=== PATIENT | female | born 1985 | race Caucasian/White ===

== ENCOUNTER 2017-10-23 12:14 | Emergency (ER) | payer BC ==
--- OUTSIDE RECORDS SUMMARY | 2017-10-23 12:25 | XMS REPORT ---
:1985 External Reference #:[id number] Author Organization [facility] Address [address] [place] [address] Phone [phone] Care Team Providers Name Role Phone ASHANTI Smith Care Team Information Crab Butcher Unavailable Payers Type Date Identification Numbers Payment Provider Subscriber Commercial Effective: Policy Number: [employer] Javier Melton 2014 [id number] Group Name: BC/BS of [facility] [address] [address] PayID: [id number] [place] [id number] Problems Description No Information Family History Date Family Member(s) Problem(s) Comments Father Hypertension Mother Hypercholesterolemia First Son Asthma : (1978) Paternal Grandfather due to [place] Paternal Grandfather Diabetes Paternal Grandmother Diabetes Paternal Grandmother Gout Paternal Grandmother due to "Old Age" () Maternal Grandfather Alcoholism Stopped drinking in 1986 Maternal Grandfather Cancer, Prostate Maternal Grandfather due to Cancer () Maternal Grandfather [place] Maternal Grandmother Hypercholesterolemia Maternal Grandmother [place] Social History Type Date Description Comments Marital Status Lives With Son Lives With Spouse Occupation security flex utility officer [employer] Cigarette Use Never Smoked Cigarettes ETOH Use Rarely consumes alcohol Smoking Patient has never smoked Enjoy Exercising Enjoys exercising Allergies, Adverse Reactions, Alerts Date Description Reaction Status Severity Comments 09/29/2015 Sulfa rash active Medications Medication Date Status Form Strength Qnty SIG Indications Ordering Provider Testoquench Active Stephanie 2016 ASHANTI Price Saige 08/02/ Active Stephanie 2016 JUDY Price-C Progesterone 03/29/ Active Stephanie Cream 2016 JUDY Price-C Probiotic 09/29/ Active Capsules Stephanie 2015 JUDY Price-C 09/29/ Active Tablets 14-0.4mg Stephanie Complete 2015 JUDY Price-C Iodine / Active Tincture 2% daily Unknown Tincture 0000 Inositol / Active Powder Unknown 0000 Vitamin D / Active Tablets 1 by mouth Unknown 0000 every day Prep 03/29/ Hx Stephanie 2016 - Caron, 07/27/ FIELD PROJECT MANAGER-C 2016 Usha 03/29/ Hx Stephanie Progest 2016 - Caron, 07/27/ FIELD PROJECT MANAGER-C 2016 Clotrimazole 07/11/ Hx Cream 2% 21gm apply to Stephanie 2015 - affected Caron, 09/09/ area twice FIELD PROJECT MANAGER-C 2016 a day Clotrimazole/B 06/28/ Hx Cream 1-0.05% 45unit apply a B35.4 Stephanie etamethasone 2015 - s thin film Caron Dipropionate 09/09/ to rash FIELD PROJECT MANAGER-C 2016 twice daily Cephalexin 06/08/ Hx Tablets 500mg 21tabs take 1 Stephanie 2015 - tablet by Caron, 09/09/ mouth three FIELD PROJECT MANAGER-C 2017 times a day x 7 days Augmentin 05/31/ Hx Tablets 875-125mg 20tabs 1 by mouth L66.4 Shawnti R. 2015 - twice a day [facility], 06/08/ for FIELD PROJECT MANAGER-C 2015 infection Bactroban 05/31/ Hx Cream 2% 30gm apply to L66.4 Shawnti R. 2016 - affected Storm, 05/31/ area three FIELD PROJECT MANAGER-C 2016 times a day as needed Mupirocin 05/31/ Hx Ointment 2% 44gm apply small L66.4 Stephanie 2015 - amount to Caron, 09/09/ rash three FIELD PROJECT MANAGER-C 2017 times daily until resolved Mirena 09/29/ Hx IUD 20mcg/24HR inserted Stephanie 2015 - 11/2013 Caron, 09/15/ FIELD PROJECT MANAGER-C 2017 Dha 09/29/ Hx Capsules 200mg Stephanie 2015 - Caron, 07/27/ FIELD PROJECT MANAGER-C 2017 Acidophilus 09/29/ Hx Capsules Stephanie 2016 - Caron, 09/29/ FIELD PROJECT MANAGER-C 2016 Immunizations CPT Code Status Date Vaccine Lot # [id number] Given 09/29/2013 Tdap (Adacel) 15612 Given 12/03/2012 HPV Vaccine, Gardasil 06422 Given 07/30/2012 HPV Vaccine, Gardasil 82630 Given 05/28/2012 HPV Vaccine, Gardasil 43848 Given 07/07/2010 Tdap (Adacel) 33306 Given 07/07/2010 Influenza Virus Vaccine, Quadrivalent, 3 Yr > Quad, Preserv Free [id number] Refused 07/27/2017 Influenza Virus Vaccine, Quadrivalent, 3 Yr > Quad, Preserv Free Vital Signs Date Vital Result Comment 09/01/2017 Weight 133.00 lb Weight in kg's 60.329 BP Systolic 92 mmHg BP Diastolic 62 mmHg Heart Rate 72 /min Body Temperature 97.5 F Respiratory Rate 16 /min O2 % BldC Oximetry 98 % 07/27/2017 Weight 132.00 lb Weight in kg's 59.875 BP Systolic 90 mmHg BP Diastolic 60 mmHg Heart Rate 84 /min Body Temperature 98.3 F 03/29/2017 Weight 128.00 lb Weight in kg's 58.061 BP Systolic 108 mmHg BP Diastolic 64 mmHg Heart Rate 72 /min Body Temperature 98.6 F Respiratory Rate 16 /min 09/09/2016 Weight 131.00 lb Weight in kg's 59.422 BP Systolic 104 mmHg BP Diastolic 68 mmHg Heart Rate 90 /min Body Temperature 97.8 F Respiratory Rate 14 /min O2 % BldC Oximetry 98 % 06/28/2016 Weight 131.00 lb Weight in kg's 59.422 BP Systolic 90 mmHg BP Diastolic 60 mmHg Heart Rate 80 /min Body Temperature 98.5 F Respiratory Rate 12 /min 06/15/2016 BP Systolic 101 mmHg BP Diastolic 57 mmHg Heart Rate 76 /min Body Temperature 98.9 F 05/31/2016 Weight 127.00 lb Weight in kg's 57.607 BP Systolic 100 mmHg BP Diastolic 60 mmHg Heart Rate 88 /min Body Temperature 99.0 F 04/22/2016 Weight 129.00 lb Weight in kg's 58.514 BP Systolic 106 mmHg BP Diastolic 62 mmHg Heart Rate 88 /min Body Temperature 98.3 F Respiratory Rate 16 /min 03/21/2016 Weight 130.00 lb Weight in kg's 58.968 BP Systolic 106 mmHg BP Diastolic 60 mmHg Heart Rate 92 /min Body Temperature 98.9 F Respiratory Rate 16 /min 09/29/2015 Weight 123.00 lb Weight in kg's 55.793 BP Systolic 90 mmHg BP Diastolic 62 mmHg Heart Rate 84 /min Height 62 inches 5'2" BMI (Body Mass Index) 22.5 kg/m2 Results Test Date Test Result H/L Range Note Laboratory test finding 09/01/2017 Amylase 35 U/L 29-103 1 Lipase 40 U/L 11.0-82.0 2 CBC Auto Diff 09/01/2017 White Blood Count 5.9 10^3/uL 3.5-10.8 Red Blood Count 4.75 10^6/uL 4.0-5.4 Hemoglobin 14.0 g/dL 12.0-16.0 Hematocrit 41 % 35-47 Mean Corpuscular Volume 87 fL 80-97 Mean Corpuscular Hemoglobin 30 pg 27-31 Mean Corpuscular HGB Conc 34 g/dL 31-36 Red Cell Distribution Width 13 % 10.5-15 Platelet Count 228 10^3/uL 150-450 Mean Platelet Volume 9 um3 7.4-10.4 Abs Neutrophils 3.6 10^3/uL 1.5-7.7 Abs Lymphocytes 1.9 10^3/uL 1.0-4.8 Abs Monocytes 0.3 10^3/uL 0-0.8 Abs Eosinophils 0.1 10^3/uL 0-0.6 Abs Basophils 0 10^3/uL 0-0.2 Abs Nucleated RBC 0 10^3/uL Granulocyte % 60.2 % 38-83 Lymphocyte % 31.7 % 25-47 Monocyte % 5.2 % 1-9 Eosinophil % 2.4 % 0-6 Basophil % 0.5 % 0-2 Nucleated Red Blood Cells % 0 Comp Metabolic Panel 09/01/2017 Sodium 137 mmol/L 133-145 Potassium 4.1 mmol/L 3.5-5.0 Chloride 104 mmol/L 101-111 Co2 Carbon Dioxide 27 mmol/L 22-32 Anion Gap 6 mmol/L 2-11 Glucose 68 mg/dL Low 70-100 Blood Urea Nitrogen 10 mg/dL 6-24 Creatinine 0.73 mg/dL 0.51-0.95 BUN/Creatinine Ratio 13.7 8-20 Calcium 9.3 mg/dL 8.6-10.3 Total Protein 6.7 g/dL 6.4-8.9 Albumin 4.7 g/dL 3.2-5.2 Globulin 2.0 g/dL 2-4 Albumin/Globulin Ratio 2.4 1-3 Total Bilirubin 0.60 mg/dL 0.2-1.0 Alkaline Phosphatase 43 U/L 34-104 Alt 24 U/L 7-52 Ast 19 U/L 13-39 Egfr Non- 93.6 >60 Egfr 120.4 >60 3 Laboratory test finding 09/01/2017 TSH (Thyroid Stim Horm) 1.57 mcIU/mL 0.34-5.60 4 CBC Auto Diff 03/29/2017 White Blood Count 8.1 10^3/uL 3.5-10.8 Red Blood Count 4.71 10^6/uL 4.0-5.4 Hemoglobin 14.0 g/dL 12.0-16.0 Hematocrit 42 % 35-47 Mean Corpuscular Volume 90 fL 80-97 Mean Corpuscular Hemoglobin 30 pg 27-31 Mean Corpuscular HGB Conc 33 g/dL 31-36 Red Cell Distribution Width 13 % 10.5-15 Platelet Count 223 10^3/uL 150-450 Mean Platelet Volume 9 um3 7.4-10.4 Abs Neutrophils 5.1 10^3/uL 1.5-7.7 Abs Lymphocytes 2.5 10^3/uL 1.0-4.8 Abs Monocytes 0.3 10^3/uL 0-0.8 Abs Eosinophils 0.2 10^3/uL 0-0.6 Abs Basophils 0 10^3/uL 0-0.2 Abs Nucleated RBC 0 10^3/uL Granulocyte % 62.6 % 38-83 Lymphocyte % 31.0 % 25-47 Monocyte % 4.2 % 1-9 Eosinophil % 1.9 % 0-6 Basophil % 0.3 % 0-2 Nucleated Red Blood Cells % 0 Comp Metabolic Panel 03/29/2017 Sodium 137 mmol/L 133-145 Potassium 3.8 mmol/L 3.5-5.0 Chloride 103 mmol/L 101-111 Co2 Carbon Dioxide 29 mmol/L 22-32 Anion Gap 5 mmol/L 2-11 Glucose 85 mg/dL 70-100 Blood Urea Nitrogen 12 mg/dL 6-24 Creatinine 0.68 mg/dL 0.51-0.95 BUN/Creatinine Ratio 17.6 8-20 Calcium 9.5 mg/dL 8.6-10.3 Total Protein 6.9 g/dL 6.4-8.9 Albumin 4.7 g/dL 3.2-5.2 Globulin 2.2 g/dL 2-4 Albumin/Globulin Ratio 2.1 1-3 Total Bilirubin 0.40 mg/dL 0.2-1.0 Alkaline Phosphatase 46 U/L 34-104 Alt 31 U/L 7-52 Ast 25 U/L 13-39 Egfr Non- 102.3 >60 Egfr 131.6 >60 5 Laboratory test finding 03/29/2017 Erythrocyte Sed Rate 7 mm/Hr 0-14 6 C Reactive Protein 3.65 mg/L < 5.00 7 Lyme Western Blot 03/29/2017 Lyme Disease IgG Ab WB Negative Negative Lyme Disease IgG Bands Present No bands detecte <SEE NOTE> kDa 8 Lyme Disease IgM Ab WB Negative Negative Lyme Disease IgM Bands Present No bands detecte <SEE NOTE> kDa 9 Lyme Disease Interpretation See Comment 10 Iron & Iron Binding Capacity 03/29/2017 Iron 70 g/dL 50-212 Unsaturated Iron Binding 237 g/dL Total Iron Binding Capacity 307 g/dL 250-450 % Iron Saturation 23 % 15-55 Laboratory test 09/09/2016 HCG DIP Test neg Neg finding Laboratory test 05/31/2016 Hemoglobin A1c 5.2 % Less than 6.0 11 finding (Glyco HGB) Laboratory test 05/31/2016 Wound Culture/Sensi SEE RESULT BELOW 12 finding Lyme Western Blot 04/22/2016 Lyme Disease IgG Ab Negative Negative WB Lyme Disease IgG Bands Present p41, kDa Lyme Disease IgM Ab WB Negative Negative Lyme Disease IgM Bands Present No bands detecte <SEE NOTE> kDa 13 Lyme Disease Interpretation See Comment 14 Laboratory test finding 03/21/2016 TSH (Thyroid Stim 1.01 mcIU/mL 0.34- 5.60 15 Horm) CBC Auto Diff 03/21/2016 White Blood Count 6.6 10^3/uL 3.5-10.8 Red Blood Count 4.73 10^6/uL 4.0-5.4 Hemoglobin 13.9 g/dL 12.0-16.0 Hematocrit 42 % 35-47 Mean Corpuscular Volume 89 fL 80-97 Mean Corpuscular Hemoglobin 29 pg 27-31 Mean Corpuscular HGB Conc 33 g/dL 31-36 Red Cell Distribution Width 13 % 10.5-15 Platelet Count 235 10^3/uL 150-450 Mean Platelet Volume 10 um3 7.4-10.4 Abs Neutrophils 4.2 10^3/uL 1.5-7.7 Abs Lymphocytes 2.0 10^3/uL 1.0-4.8 Abs Monocytes 0.3 10^3/uL 0-0.8 Abs Eosinophils 0.1 10^3/uL 0-0.6 Abs Basophils 0 10^3/uL 0-0.2 Abs Nucleated RBC 0 10^3/uL Granulocyte % 63.1 % 38-83 Lymphocyte % 29.7 % 25-47 Monocyte % 4.7 % 1-9 Eosinophil % 1.8 % 0-6 Basophil % 0.7 % 0-2 Nucleated Red Blood Cells % 0 Comp Metabolic Panel 03/21/2016 Sodium 140 mmol/L 133-145 Potassium 4.1 mmol/L 3.5-5.0 Chloride 103 mmol/L 101-111 Co2 Carbon Dioxide 29 mmol/L 22-32 Anion Gap 8 mmol/L 2-11 Glucose 92 mg/dL 70-100 Blood Urea Nitrogen 10 mg/dL 6-24 Creatinine 0.69 mg/dL 0.51-0.95 BUN/Creatinine Ratio 14.5 8-20 Calcium 9.7 mg/dL 8.6-10.3 Total Protein 7.1 g/dL 6.4-8.9 Albumin 4.7 g/dL 3.2-5.2 Globulin 2.4 g/dL 2-4 Albumin/Globulin Ratio 2.0 1-3 Total Bilirubin 0.50 mg/dL 0.2-1.0 Alkaline Phosphatase 55 U/L 34-104 Alt 19 U/L 7-52 Ast 20 U/L 13-39 Egfr Non- 101.3 >60 Egfr 130.3 >60 16 Laboratory test 03/21/2016 Vitamin D Total 84.1 ng/mL High 30-50 17 finding 25(Oh) Laboratory test 09/29/2015 Cytology SEE RESULT BELOW 18 finding HPV Rna Ww/Reflex Genotype Negative Negative 19 1 [id number] 3 Because ethnic data is not always readily available, this report includes an eGFR for both -Americans and non- Americans. The National Kidney Disease Education Program (NKDEP) does not endorse the use of the MDRD equation for patients that are not between the ages of 18 and 70, are , have extremes of body size, muscle mass, or nutritional status, or are non- or non-. According to the National Kidney Foundation, irrespective of diagnosis, the stage of the disease is based on the level of kidney function: Stage Description GFR(mL/min/1.73 m(2)) 1 Kidney damage with normal or decreased GFR 90 2 Kidney damage with mild decrease in GFR 60-89 3 Moderate decrease in GFR 30-59 4 Severe decrease in GFR 15-29 5 Kidney failure <15 (or dialysis) 4 [id number] 5 Because ethnic data is not always readily available, this report includes an eGFR for both -Americans and non- Americans. The National Kidney Disease Education Program (NKDEP) does not endorse the use of the MDRD equation for patients that are not between the ages of 18 and 70, are , have extremes of body size, muscle mass, or nutritional status, or are non- or non-. According to the National Kidney Foundation, irrespective of diagnosis, the stage of the disease is based on the level of kidney function: Stage Description GFR(mL/min/1.73 m(2)) 1 Kidney damage with normal or decreased GFR 90 2 Kidney damage with mild decrease in GFR 60-89 3 Moderate decrease in GFR 30-59 4 Severe decrease in GFR 15-29 5 Kidney failure <15 (or dialysis) 6 [id number] 7 Acute inflammation: >10.00 8 No bands detected 9 No bands detected 10 Specific serologic response to B. burgdorferi infection is not detected, but cannot rule out early infection during which low or undetectable antibody levels to B. burgdorferi may be present. If clinically indicated, a new serum specimen should be submitted in 7-14 days. ADDITIONAL INFORMATION CDC criteria require >=5 bands for IgG or >=2 bands for IgM for the Immunoblot to be considered positive. Bands (e.g.,p41) may be detected in patients without Lyme disease, and patterns not meeting the CDC criteria should be interpreted with caution. Immunoblot should be ordered only on specimens that are positive or equivocal by a FDA-licensed Lyme disease antibody screening test (e.g., EIA). Test Performed by: [address] [address] 11 Therapeutic target for the treatment of diabetes Mellitus patients is <7% HBA1C, and in selective patients <6.0%.Please refer to [place] [employer] Diabetic care guidelines for further information. 12 SEE RESULT BELOW Name: DIANEBECKY ABRAHAM : [address]: Anahi Collado NP Acct: [id number] Unit: [id number] AGE: 31 Location: [facility] Re05/31/16 SEX: F Status: REG REF SPEC: [id number] YAKOV: 05/31/[address]: Anahi Collado NP REQ: [id number] RECD: 05/31/16 STATUS: COMP _ SOURCE: WANDER VALDOVINOS SPDESC: ORDERED: Culture Stain Specimen Description RIGHT MARYA Procedure Result Reported Site Wound/Misc Gram Stain Final 06/01/16- 14 ML 1+ Epithelial Cells No Neutrophils Observed 3+ Gram Positive Cocci in Clusters, resembling Staph 1+ Gram Negative Bacilli Wound/Misc Culture Final 06/02/16- 51 ML Organism 1 STAPHYLOCOCCUS AUREUS Quantity 3+ 1. STAPHYLOCOCCUS AUREUS M.I.C. RX --------- ------ Penicillin >=0.5 R Clindamycin <=0.25 S Erythromycin <=0.25 S Gentamicin <=0.5 S Linezolid 2 S Nitrofurantoin 32 S Oxacillin 0.5 S * Quinupristin/Dalfopristin 0.5 S Rifampin <=0.5 S Tetracycline <=1 S Doxycycline - Deduced S * Minocycline - Deduced S Trimethoprim/Sulfamethoxazole <=10 S CONTINUED ON NEXT PAGE * ML=Testing performed at Main Lab DEPARTMENT OF PATHOLOGY, [address] [place] [address] Dipak Johnson M.D. Director [facility] # [id number] Patient: BECKY MORALES [id number] (Continued) Specimen: [id number] Collected: 05/31/16 Received: 05/31/16 (Continued) Procedure Result Reported Site Wound/Misc Culture Final (continued) 06/02/16950 1. STAPHYLOCOCCUS AUREUS (continued) M.I.C. RX --------- ------ Vancomycin 1 S Imipenem-Deduced S * Ampicillin/Sulbactam-Deduced S Cefazolin-Deduced S * These antibiotics are not available in the [facility] Formulary Contact the Microbiology Department for any additional antibiotic reporting. * ML - MAIN LAB ([facility]) . END OF REPORT * ML=Testing performed at Main Lab DEPARTMENT OF PATHOLOGY, [address] [place] [address] Dipak Johnson M.D. Director [facility] # [id number] 13 No bands detected 14 Specific serologic response to B. burgdorferi infection is not detected, but cannot rule out early infection during which low or undetectable antibody levels to B. burgdorferi may be present. If clinically indicated, a new serum specimen should be submitted in 7-14 days. ADDITIONAL INFORMATION CDC criteria require >=5 bands for IgG or >=2 bands for IgM for the Immunoblot to be considered positive. Bands (e.g.,p41) may be detected in patients without Lyme disease, and patterns not meeting the CDC criteria should be interpreted with caution. Immunoblot should be ordered only on specimens that are positive or equivocal by a FDA-licensed Lyme disease antibody screening test (e.g., EIA). Test Performed by: [place] [address] Napper Grinder: Ja Ritter II, M.D., Ph.D. 15 [id number] 16 Because ethnic data is not always readily available, this report includes an eGFR for both -Americans and non- Americans. The National Kidney Disease Education Program (NKDEP) does not endorse the use of the MDRD equation for patients that are not between the ages of 18 and 70, are , have extremes of body size, muscle mass, or nutritional status, or are non- or non-. According to the National Kidney Foundation, irrespective of diagnosis, the stage of the disease is based on the level of kidney function: Stage Description GFR(mL/min/1.73 m(2)) 1 Kidney damage with normal or decreased GFR 90 2 Kidney damage with mild decrease in GFR 60-89 3 Moderate decrease in GFR 30-59 4 Severe decrease in GFR 15-29 5 Kidney failure <15 (or dialysis) 17 [id number] 18 SEE RESULT BELOW Name: BECKY MELTON : [address]: Stephanie Price NEONATAL SURGEON Acct: [id number] Unit: [id number] AGE: 30 Location: [facility] Re09/29/15 SEX: F Status: REG REF SPEC: [id number] YAKOV: 09/29/15-[address]: Stephanie Price NEONATAL SURGEON REQ: [id number] RECD: 09/29/158642 STATUS: SOUT _ ORDERED: IMAGE ANALYSIS, HPV/Thin Prep, HPV 16/18 GENE FINAL DIAGNOSIS Negative for Intraepithelial lesion or Malignancy Fungal organisms morphologically consistent with Cydney species A. Ectocervical/Endocervical Specimen Adequacy: Satisfactory of evaluation Transformation zone component identified Patient Information: HPV: High risk HPV RNA testing regardless of pap results. HPV 16/18 Genotype for HPV pos Actual Specimen Date: 09/29/15 LMP If Unknown: IUD ?: N Post Menopausal?: N Hysterectomy?: N Date Time Test Result Flag (u) Normal Range 09/29/15 1453 HPV RNA RFLX GE Negative Negative The high-risk HPV types detected by the assay include: 16, 18, 31, 33, 35, 39, 45, 51, 52, 56, 58, 59, 66, and 68. Signed (signature on file) ANA PAULA Tapia(ASCP) 09/30 1258 This Pap test was evaluated with the assistance of the PocketGuidePrep Test Imaging System. Due to cytologic findings at the rip tailer microscope, comprehensive manual rescreening by a Squad Sergeant may be required. The Pap Smear is a screening test designed to aid in the detection of premalignant and malignant conditions of the uterine cervix. It is not a diagnostic procedure and should not be used as the sole means of detecting cervical cancer. Both false- positive and false- negative reports do occur. Depending on your risk status, a Pap smear should be obtained and evaluated every 1-3 years. END OF REPORT * ML=Testing performed at Main Lab DEPARTMENT OF PATHOLOGY, [address] [place] [address] Dipak Johnson M.D. Director [facility] # [id number] 19 The high-risk HPV types detected by the assay include: 16, 18, 31, 33, 35, 39, 45, 51, 52, 56, 58, 59, 66, and 68. Procedures Date CPT Code Description Status 09/09/2016 99684 Removal Of IUD Completed Encounters Type Date Location Provider CPT E/M Dx Office Visit 07/27/2017 11:45a Main Office Stephanie Price FIELD PROJECT MANAGER-C 70520 M94.0 Office Visit 03/29/2017 3:45p Main Office Stephanie Price FIELD PROJECT MANAGER-C 26155 R42 Office Visit 06/28/2016 2:45p Main Office LULÚ SmithP-C 28007 B35.4 Office Visit 06/15/2016 4:45p Main Office LULÚ SmithP-C 95646 L66.4 Office Visit 05/31/2016 2:45p Main Office Anahi Collado FIELD PROJECT MANAGER-C 79198 L66.4 Office Visit 04/22/2016 2:45p Main Office Stephanie Price FIELD PROJECT MANAGER-C 54016 R53.83 R10.30 Office Visit 03/21/2016 4:45p Main Office Stephanie Price FIELD PROJECT MANAGER-C 54854 R53.83 E07.89 Office Visit 09/29/2015 1:30p Main Office LULÚ SmithP-C 78556 Z00.00 Plan of Care 09/01/2017 - JUDY Smith-CR10.9 Unspecified abdominal painComments:will obtain labs and u/s recommendations based on resultsshe will monitor sx and will contact the office if concerns exam does not reproduce sx.R59.0 Localized enlarged lymph nodesComments:hx of enlarged lymph nodes on us will repeat to monitor, recommendations based on resultsshe will contact the office if any concerns.E07.9 Disorder of thyroid, unspecified
[2017-10-23 12:34] VITALS: BP 129/75
--- NOTE | 2017-10-23 13:23 | UC ---
Back Pain HPI - HPI Summary HPI Summary: , LMP 09/09/17, pt had positive HPT 10/10/17, has been trying for . Had lots of exhaustion and vague symptoms, worked up by PCP without dx. Went to sales planning coordinator and was dx-ed with adrenal fatigue, low progesterone, and high DHEA/ high testosterone. [place] better after a couple months of supplements, saw [facility] 10/19/17 out of concern for low progesterone, had blood draw of low-normal P, rx- ed prog cream. In the middle of the night pt woke without any of her bloating, breast tenderness, or feeling of constipation, also has sharp low back pain. Very anxious about this, called [facility] but still waiting on CB and here for "peace of mind." Last week had transient low abd pain on L and then on R separately, but not currently painful. - History of Current Complaint Chief Complaint: UCBackPain Stated Complaint: LOWER BACK PAIN 6 WKS PREG Time Seen by Provider: 10/23/17 12:48 Hx Obtained From: Patient Hx Last Menstrual Period: 09/09/17 ?: Yes Onset/Duration: Sudden Onset Timing: Constant Severity Initially: Mild Severity Currently: Mild Pain Intensity: 4 Back Pain: Is Discrete @ Character: Stiffness Aggravating Factor(s): Movement Alleviating Factor(s): Rest Associated Signs And Symptoms: Negative: Abdominal Pain, Bladder Incontinence, Bowel Incontinence - Allergies/Home Medications Allergies/Adverse Reactions: Allergies Allergy/AdvReac Type Severity Reaction Status Date / Time Sulfa (Sulfonamide Allergy Rash Verified 10/23/17 12:34 Antibiotics) Home Medications: Home Medications Cholecalciferol TAB* [Vitamin D TAB*] 1,000 units PO DAILY 10/23/17 [History Confirmed 10/23/17] Docosahexanoic Acid [Atabex Dha 200] 200 mg PO DAILY 10/23/17 [History Confirmed 10/23/17] L.acidoph,Paracasei, B.lactis [Probiotic] 1 each PO DAILY 10/23/17 [History Confirmed 10/23/17] PMH/Surg Hx/FS Hx/Imm Hx - Additional Past Medical History Additional PMH: several hormonal imbalances diagnosed by sales planning coordinator. - Surgical History Surgical History: Yes Surgery Procedure, Year, and Place: HERNIA REPAIR 05/2012 - Family History Known Family History: Positive: Hypertension - Social History Lives: With Family Alcohol Use: None Substance Use Type: None Smoking Status (MU): Never Smoked Tobacco - Immunization History Most Recent Influenza Vaccination: 05/2013 Most Recent Tetanus Shot: 08/15/13 Most Recent Pneumonia Vaccination: none Review of Systems Constitutional: Negative Skin: Negative Eyes: Negative ENT: Negative Respiratory: Negative Cardiovascular: Negative Gastrointestinal: Negative Genitourinary: Negative Motor: Negative Neurovascular: Negative Musculoskeletal: Myalgia Neurological: Negative Psychological: Negative Is Patient Immunocompromised?: No All Other Systems Reviewed And Are Negative: Yes Physical Exam Triage Information Reviewed: Yes Appearance: Well-Appearing, No Pain Distress, Well-Nourished Vital Signs: Initial Vital Signs Temp 98.1 F 10/23/17 12:30 Pulse 87 10/23/17 12:30 Resp 16 10/23/17 12:30 BP 129/75 10/23/17 12:30 Pulse Ox 100 10/23/17 12:30 Vital Signs Reviewed: Yes Eye Exam: Normal Eyes: Positive: Conjunctiva Clear ENT Exam: Normal ENT: Positive: Normal ENT inspection, Hearing grossly normal, Pharynx normal, TMs normal Dental Exam: Normal Neck exam: Normal Neck: Positive: Supple, Nontender, No Lymphadenopathy Respiratory Exam: Normal Respiratory: Positive: Chest non-tender, Lungs clear, Normal breath sounds, No respiratory distress, No accessory muscle use Cardiovascular Exam: Normal Cardiovascular: Positive: RRR, No Murmur Abdomen Description: Negative: CVA Tenderness (R), CVA Tenderness (L) Musculoskeletal: Positive: Strength Intact, ROM Intact Neurological Exam: Normal Psychological Exam: Normal Skin Exam: Normal Back Pain Course/Dx - Differential Dx/Diagnosis Provider Diagnoses: Intrauterine . elevated blood pressure due to anxiety Discharge - Discharge Plan Condition: Stable Disposition: HOME Patient Education Materials: (ED) Referrals: Stephanie Reardon NP [Primary Care Provider] - Additional Instructions: Please continue to follow up with [facility] for your .
--- NOTE | 2017-10-23 14:30 | RAD ---
Indication: 6 weeks 2 days gestation based on September 09, 2017 LMP. Loss of related symptoms. Comparison: April 28, 2016 pelvic ultrasound. Technique: Transvaginal obstetrical ultrasound. Report: Single intrauterine gestation with mean gestational sac diameter of 1.69 cm. 0.46 cm crown-rump length corresponding to 6 weeks 2 days gestation. No gross movement observed. No cardiac activity evident on M-mode Doppler with heart rate measuring 110 bpm. Qualitatively normal volume of amniotic fluid. Unremarkable 0.4 cm yolk sac. Trace fluid in the endometrial cavity is suggestion of a small subchorionic hemorrhage. 3.4 x 2.1 x 2.3 cm RIGHT ovary with documented vascular flow is remarkable for a heterogeneous echogenicity 2.1 x 1.7 x 2.1 cm structure most consistent with a corpus luteum. 1.6 x 0.9 x 1.0 cm LEFT ovary with documented vascular flow is remarkable for small follicles only. No suspicious ovarian or extraovarian adnexal region lesions evident. Negative for free pelvic fluid. IMPRESSION: Single intrauterine gestation with estimated gestational age of 6 weeks 2 days based on crown-rump length. Low observed heart rate at 110 bpm. No gross movement observed. Suggestion of a small perigestational hemorrhage. Close clinical, beta-HCG, and sonographic follow-up suggested.
== END 2017-10-23 14:41 | disposition home or self-care (01) ==
LOC: UCEAST 12:14
DX: O26.891 Other specified pregnancy related conditions, first trimester (principal); M54.5 Low back pain; R03.0 Elevated blood-pressure reading, without diagnosis of hypertension; F41.9 Anxiety disorder, unspecified; Z3A.01 Less than 8 weeks gestation of pregnancy; Z88.2 Allergy status to sulfonamides
CPT/HCPCS: 76817; 81003; 84702; 99211; G0463